=== PATIENT | male | born 2000 | race Caucasian/White ===

== ENCOUNTER 2022-10-30 09:00 | Emergency (ER) | payer BC, SELFPAY ==
--- NOTE | ~2022-10-30 | CT_ITS ---
EXAMINATION: CT brain wo con INDICATION: Transient alteration of awareness COMPARISON: None TECHNIQUE: Standard unenhanced head CT. The dose-length product (DLP) was 605.33 mGy-cm. The mA was a djusted according to patient size. Iterative reconstruction technique was employed. FINDINGS: There is no intracranial hemorrhage, acute infarction, or abnormal mass lesion. The ventric les are normal. There is no abnormal mass effect or midline shift. The gallagher-white matter differentiat ion is normal. The basal cisterns are patent. The orbits are normal. The paranasal sinuses, mastoids and calvarium are normal. IMPRESSION: 1. No acute intracranial abnormality. Reviewed, dictated and finalized at location B.
--- NOTE | ~2022-10-30 | XR_ITS ---
EXAMINATION: XR chest 1V DATE: 10/30/2022 10:25 INDICATION: Seizure TECHNIQUE: frontal view of the chest was obtained. COMPARISON: None FINDINGS: The lungs are clear with no focal airspace opacities, pulmonary edema, pleural effusion or pneumothor ax. The cardiomediastinal silhouette is normal. Partially visualized dextrocurvature centered at the proximal lumbar junction. IMPRESSION: 1. No acute cardiopulmonary disease. Reviewed, dictated and finalized at location A.
[2022-10-30 09:06] VITALS: BP 127/84; PULSE 77; RESP 18; TEMP 36.2; O2SAT 100
[2022-10-30 09:07] VITALS: BP 127/84; PULSE 108; RESP 14; O2SAT 86
[2022-10-30 09:16] VITALS: BP 114/73; PULSE 96; RESP 19
[2022-10-30 10:01] VITALS: BP 102/72; PULSE 81; RESP 19; O2SAT 100
[2022-10-30 11:11] LABS: Basophils Absolute Auto 0.1 K/mm3 (0.0-0.1); Basophils Percent Auto 0.9 % (0.2-1.2); Eosinophils Absolute Auto 0.1 K/mm3 (0-0.3); Eosinophils Percent Auto 0.9 % (0-4.4); Hematocrit 39.7 % (42.0-52.0); Hemoglobin 13.1 g/dL (14.0-18.0); Immature Granulocyte Absolute 0.02 K/mm3 (0.00-0.031); Immature Granulocyte Percent A 0.3 % (0-0.5); Lymphocytes Absolute Auto 0.89 K/mm3 (0.9-3.2); Lymphocytes Percent Auto 12.1 % (18.3-44.2); Mean Corpuscular Hemoglobin 29.2 pg (26-34); Mean Corpuscular Volume 88.6 fl (80-100); Mean Platelet Volume 8.7 fl (7.4-10.4); Monocytes Absolute Auto 0.7 K/mm3 (0.1-0.6); Monocytes Percent Auto 9.2 % (2.6-8.5); Neutrophils Absolute Auto 5.6 K/mm3 (1.3-6.7); Neutrophils Percent Auto 76.6 % (45.5-73.1); Platelet Count Result 298 k/mm3 (150-375); Red Blood Count 4.48 M/mm3 (4.6-6.20); Red Cell Distribution Width 12.3 % (11.5-14.5); White Blood Count 7.4 K/mm3 (4.5-10.0)
[2022-10-30 11:29] LABS: Ethanol < 10 mg/dL (<10)
[2022-10-30 11:30] LABS: Alanine Aminotransferase 16 U/L (6-50); Albumin Level 4.4 g/dL (3.5-5.1); Alkaline Phosphatase 58 U/L (38-126); Anion Gap 3 mmol/L (8-16); Aspartate Amino Transferase 30 U/L (17-59); Bilirubin,Total 0.3 mg/dL (0.2-1.3); Blood Urea Nitrogen 16 mg/dL (9-20); Calcium 9.3 mg/dL (8.4-10.2); Carbon Dioxide 34 mmol/L (22-30); Chloride 101 mmol/L (98-107); Estimated Glomerular Filt Rate > 60; Glucose 95 mg/dL (65-110); Potassium 4.3 mmol/L (3.4-5.0); Sodium 138 mmol/L (137-145)
[2022-10-30 12:07] LABS: Appearance Urine Clear (Clear); Bilirubin Urine Negative (Negative); Blood Urine Negative (Negative); Color Urine Yellow (Yellow); Glucose Urine UA Negative (Negative); Ketones Urine Negative (Negative); Leukocyte Esterase Ur Negative LEU/UL (Negative); Nitrate Urine Negative (Negative); Protein Urine Negative (Negative); Specific Grav Ur 1.014 (1.001-1.035); Urobilinogen Urine 0.2 mg/dL (<2.0)
[2022-10-30 12:09] LABS: Add Urine Microscopic? NO
[2022-10-30 12:23] LABS: Amphetamine Screen Urine Negative (Negative); Barbiturate Screen Urine Negative (Negative); Benzodiazepines Screen Urine Negative (Negative); Cannabinoid Screen Urine Positive (Negative); Cocaine Screen Urine Negative (Negative); Methadone Screen Urine Negative (Negative); Opiate Screen Urine Negative (Negative); Phencyclidine Screen Urine Negative (Negative)
--- NOTE | 2022-10-30 13:14 | ED.SEIZURE ---
HPI - Seizure General Chief Complaint: Seizure Stated Complaint: seizure Time Seen by Provider: 10/30/22 09:09 History of Present Illness HPI Narrative: Patient is a 22-year-old male who presents ER with a seizure. Apparently patient was at school today and suffered a grand mal seizure in front of caretakers. Mother was called and patient was brought here. Patient has no history of seizure disorder. 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 Patient is nonverbal and all history is obtained from mother. Patient apparently had loss of urine during the episode. Patient does not have a neurologist. Related Data Allergies Allergy/AdvReac Type Severity Reaction Status Date / Time No Known Allergies Allergy Verified 10/30/22 09:14 Review of Systems Review of Systems: ROS unobtainable: Yes unobtainable due to medical condition PMFSH Past Medical History Medical History (Updated 10/30/22 @ 19:50 by Gurmeet Morales MD) Septo-optic dysplasia Surgical History Surgical History (Updated 10/30/22 @ 19:50 by Gurmeet Morales MD) No history of previous surgery Exam Narrative: GENERAL: Well-appearing, well-nourished, and in no acute distress. HEAD: Normocephalic, atraumatic. ENT: Mucous membranes moist. CHEST: Clear to auscultation. No respiratory distress. HEART: Regular rate and rhythm. Normal peripheral pulses. ABDOMEN: Soft, nontender, nondistended. EXTREMITIES: Normal range of motion. No edema. SKIN: Warm, dry, no rash. Bite rashid right arm that mother reports is due to patient's frequent biting. NEURO: Alert and oriented x3. PSYCH: Normal mood and affect. Course Course Emergency Course: Patient resting comfortably. Mother informed of results. Discussed case with Dr. Geller who recommends patient be started on Keppra 500 mg twice a day. Seizure precautions given including return for breakthrough seizure. Mother verbalized understanding. Patient's mother is unsure how cannabinoids have gotten in the patient's urinalysis. She does not give him CBD or THC products. She does smoke marijuana herself but does not believe that she could have exposed her son. Vital Signs Vital signs: Vital Signs Temperature 97.2 F L 10/30/22 09:06 Pulse Rate 77 10/30/22 09:06 Respiratory Rate 18 10/30/22 09:06 Blood Pressure 127/84 10/30/22 09:06 Pulse Oximetry 100 10/30/22 09:06 Oxygen Delivery Room Air 10/30/22 09:06 Temperature 97.2 F L 10/30/22 09:06 Pulse Rate 60 10/30/22 15:02 Respiratory Rate 18 10/30/22 15:02 Blood Pressure 117/65 10/30/22 15:02 Pulse Oximetry 100 10/30/22 10:01 Oxygen Delivery Room Air 10/30/22 09:06 MDM - Seizure Lab Data 10/30/22 11:02 10/30/22 11:02 Labs: Lab Results 10/30/22 10/30/22 10/30/22 Range/Units 11:02 11:02 11:02 WBC 7.4 (4.5-10.0) K/mm3 RBC 4.48 L (4.6-6.20) M/mm3 Hgb 13.1 L (14.0-18.0) g/dL Hct 39.7 L (42.0-52.0) % MCV 88.6 (80-100) fl MCH 29.2 (26-34) pg MCHC 33.0 (32-36) g/dl RDW 12.3 (11.5-14.5) % Plt Count 298 (150-375) k/mm3 MPV 8.7 (7.4-10.4) fl Immature Gran % (Auto) 0.3 (0-0.5) % Neut % (Auto) 76.6 H (45.5-73.1) % Lymph % (Auto) 12.1 L (18.3-44.2) % [place] % (Auto) 9.2 H (2.6-8.5) % Eos % (Auto) 0.9 (0-4.4) % Baso % (Auto) 0.9 (0.2-1.2) % Lymph # (Auto) 0.89 L (0.9-3.2) K/mm3 [place] # (Auto) 0.7 H (0.1-0.6) K/mm3 Eos # (Auto) 0.1 (0-0.3) K/mm3 Baso # (Auto) 0.1 (0.0-0.1) K/mm3 Abs Immat Gran (auto) 0.02 (0.00-0.031) K/mm3 Absolute Neuts (auto) 5.6 (1.3-6.7) K/mm3 Absolute Nucleated RBC 0.0 (0.0-0.012) K/mm3 Nucleated RBC % 0.0 (0.0-0.2) % Sodium 138 (137-145) mmol/L Potassium 4.3 (3.4-5.0) mmol/L Chloride 101 (98-107) mmol/L Carbon Dioxide 34 H (22-30)
[2022-10-30] MEDS: levETIRAcetam 1000MG/NACL100ML 1,000 MG/100 ML BAG 400 MG IVPB (14:01)
[2022-10-30 15:02] VITALS: BP 117/65; PULSE 60; RESP 18
--- NOTE | 2022-11-17 13:50 | PC.NURSE ---
Late entry note: Keppra IV medication stopped at 1420 on 10/30/22 by another RN.
== END 2022-10-30 15:03 | disposition home or self-care (01) ==
PROVIDERS: Emergency Provider Emergency Medicine; PCP Nurse Practitioner Family
DX: R56.9 Unspecified convulsions (principal); Q04.4 Septo-optic dysplasia of brain
CPT/HCPCS: 36415; 70450; 71045; 80053; 80307; 81003; 85025; 96365; 99284; J1953

== ENCOUNTER 2025-04-24 16:13 | Emergency (ER) | payer OTHER, SELFPAY ==
--- OUTSIDE RECORDS SUMMARY | 2025-04-24 16:16 | XMS_ITS | Encounter Summary ---
Author Organization [facility] Address 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
--- OUTSIDE RECORDS SUMMARY | 2025-04-24 16:16 | XMS_ITS | Encounter Summary ---
Author Organization [facility] Address [address] [place] [address] Care Team Providers Care Senior Mobile Application Developer Name Role Phone Luisa Quan MD Primary Care Provider Unavailable Encounter Details Date Type Department Care Team (Late st Contact Info) Description 08/11/2004 Outpatient Historical [facility] [place] [address] 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
--- OUTSIDE RECORDS SUMMARY | 2025-04-24 16:16 | XMS_ITS | Encounter Summary ---
Author Organization [facility] Address 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 Gender Identity Not on file Sexual Orientation Not on file documented as of this encounter Plan of Treatment Not on file documented as of this encounter Procedures Procedure Name Priority Date/Time Associated Diagnosis Comments SOMATOMEDIN C Routine 11/15/2004 4:10 PM CDT TSH Routine 11/15/2004 4:10 PM CDT T4 FREE Routine 11/15/2004 4:10 PM CDT CORTISOL LEVEL Routine 11/15/2004 4:10 PM CDT COMPREHENSIVE METABOLIC PANEL Routine 11/15/2004 4:10 PM CDT documented in this encounter Results * SOMATOMEDIN C (11/15/2004 4:10 PM CDT) SOMATOMEDIN C 33 17 - 248 ng/mL INTERFACE SYSTEM Comment: Lab test performed by: [facility] [address] [place], [place] [id number] YUAN DELGADO M.D., PHD. 11/15/2004 4:10 PM CDT us Constant Voulgaropoulos CHEMISTRY ORDERABLES Fin al Result Performing Organization Address City/[facility] Co de Phone Number INTERFACE SYSTEM Refer to clinic/hospital department * CORTISOL LEVEL (11/15/2004 4:10 PM CDT) CORTISOL LEVEL 17.2 ug/dL INTER FACE SYSTEM Comment: Cortisol Reference Range: 7 - 10 AM: 6.2 - 19.4 ug/dL 4 - 8 PM: 2.3 - 12.3 ug/dL 11/15/2004 4:10 PM CDT us Constant Voulgaropoulos CHEMISTRY ORDERABLES Fin al Result Performing Organization Address City/[facility] Phone Number INTERFACE SYSTEM Refer to clinic/hospital department * TSH (11/15/2004 4:10 PM CDT) TSH 2.05 0.27 - 4.20 uU/mL INTERFACE SYSTEM 11/15/2004 4:10 PM CDT us Constant Voulgaropoulos CHEMISTRY ORDERABLES Fin al Result Performing Organization Address City/[facility] Phone Number INTERFACE SYSTEM Refer to clinic/hospital department * T4 FREE (11/15/2004 4:10 PM CDT) T4 FREE 1.4 0.9 - 1.7 ng/dL INTERFACE SYSTEM 11/15/2004 4:10 PM CDT us Constant Voulgaropoulos CHEMISTRY ORDERABLES Fin al Result Performing Organization Address City/[facility] Co de Phone Number INTERFACE SYSTEM Refer to clinic/hospital department * (ABNORMAL) COMPREHENSIVE METABOLIC PANEL (11/15/2004 4:10 PM CDT) GLUCOSE 91 60 - 110 mg/dL INTERFACE SYSTEM CREATININE 0.4 0.2 - 0.7 mg/dL INTERFACE SYSTEM CALCIUM 9.3 8.8 - 10.8 mg/dL INTERFACE SYSTEM AST 41(H) 12 - 38 U/L INTERFACE SYSTEM ALKALINE PHOSPHATASE 162 40 - 390 U/L INTERFACE SYSTEM BUN 14 6 - 20 mg/dL INTERFACE SYSTEM BILIRUBIN TOTAL 0.1(L) 0.2 - 1.0 mg/dL INTERFACE SYSTEM ALBUMIN 4.1 3.8 - 5.4 g/dL INTERFACE SYSTEM TOTAL PROTEIN 7.4 6.3 - 8.6 g/dL INTERFACE SYSTEM ALT 13 0 - 41 U/L INTERFACE SYSTEM SODIUM 138 135 - 145 mmol/L INTERFACE SYSTEM POTASSIUM 4.6 3.3 - 4.6 mmol/L INTERFACE SYSTEM CHLORIDE 101 96 - 108 mmol/L INTERFACE SYSTEM CO2 26 22 - 30 mmol/L INTERFACE SYSTEM 11/15/2004 4:10 PM CDT Brenton Green CHEMISTRY ORDERABLES Fin al Result INTERFACE SYSTEM Refer to clinic/hospital department documented in this encounter Visit Diagnoses Diagnosis Congenital reduction deformities of brain- Primary documented in this encounter Care Teams First Assistant Relationship Specialty Start Date End Date Luisa Quan MD PCP - General Family Practice 02/22/15 documented as of this encounter
--- OUTSIDE RECORDS SUMMARY | 2025-04-24 16:16 | XMS_ITS | Encounter Summary ---
Author Organization [facility] Address [address] [place] [address] Care Team Providers Care Nursing Technician Name Role Phone Luisa Quan MD Primary Care Provider Unavailable Encounter Details Date Type Department Care Team (Late st Contact Info) Description 09/12/2004 Outpatient Historical [facility] [place] [address] [facility] [place] [address] Aruna Mcmanus MD [address] [place] [phone] Social History Tobacco Use Types Packs/Day Years Used Date Smoking Tobacco: Never Assessed Sex and Gender Information Value Date Recorded Sex Assigned at Not on file 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
--- OUTSIDE RECORDS SUMMARY | 2025-04-24 16:16 | XMS_ITS | Encounter Summary ---
Author Organization [facility] Address [address] [place] [address] Care Team Providers Care Health Claims Examiner Name Role Phone Luisa Quan MD Primary Care Provider Unavailable Encounter Details Date Type Department Care Team (Late st Contact Info) Description 01/16/2007 Outpatient Historical [facility] [place] [address] [facility] [place] [address] Aruna Mcmanus MD [address] [phone] Social History Tobacco Use Types Packs/Day Years Used Date Smoking Tobacco: Never Assessed Sex and Gender Information Value Date Recorded Sex Assigned at Not on file 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
--- OUTSIDE RECORDS SUMMARY | 2025-04-24 16:16 | XMS_ITS | Encounter Summary ---
Author Organization [facility] Address [address] [place] [address] Care Team Providers Care Marbleizing Machine Tender Name Role Phone Luisa Quan MD Primary Care Provider Unavailable Encounter Details Date Type Department Care Team (Late st Contact Info) Description 04/06/2005 Outpatient Historical [facility] Pediatric[facility] [place] [address] [facility] [place] [address] Aruna Mcmanus MD [address] [place] [phone] Social History Tobacco Use Types Packs/Day Years Used Date Smoking Tobacco: Never Assessed Sex and Gender Information Value Date Recorded Sex Assigned at Not on file 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
--- OUTSIDE RECORDS SUMMARY | 2025-04-24 16:16 | XMS_ITS | Clinical Summary ---
Author Organization [facility] Address [address] [place] [address] Care Team Providers Care Insurance Solicitor Name Role Phone Lord Dc MD, Al Gonzalez Primary Care Provider [phone] Source Comments [facility],non-owned Affiliates and Associated Physician Practices is amultiple site organization consisting of ambulatory clinics and hospital sitesin [place] and [place]. This disclosure is being madepursuant to the Care Everywhere program and may not contain all information available regarding this patient. Last updated 18.[facility] Social History Tobacco Use Types Packs/Day Years Used Date Smoking Tobacco: Never Assessed Sex and Gender Information Value Date Recorded Sex Assigned at Not on file Legal Sex Male 5:44 AM CASING GRADER Gender Identity Not on file Sexual Orientation Not on file Plan of Treatment Health Maintenance Due Date Last Done Comments HIV SCREENING 2016 HPV VACCINE (1 - Male 3-dose series) 2016 HEPATITIS C SCREENING 03/23/2019 DTAP/TDAP/TD VACCINES (1 - Tdap) 2020 HEPATITIS B VACCINE (1 of 3 - 19+ 3-dose series) 2020 DEPRESSION SCREENING 07/09/2024 COVID-19 VACCINE ( - 2023-2 5 season) 2025 INFLUENZA VACCINE (#1) 2025 ZOSTER VACCINE (1 of 2) 2051 HIB VACCINE Aged Out No longer eligi ble based on patient's age to complete this topic MENINGOCOCCAL (Group B) VACC INE SHARED DECISION-MAKING Aged Out No longer eligibl e based on patient's age to complete this topic MENINGOCOCCAL GROUPS A/C/Y/W VACCINE Aged Out No longer eligible b ased on patient's age to complete this topic PNEUMOCOCCAL VACCINE Aged Out No long er eligible based on patient's age to complete this topic Care Teams Insurance Solicitor Relationship Specialty Start Date End Date Al Vazquez Jr., MD PCP - General Family Medicine 06/25/13
--- OUTSIDE RECORDS SUMMARY | 2025-04-24 16:16 | XMS_ITS | Encounter Summary ---
Author Organization [facility] Address [address] [place] [address] Care Team Providers Care Hat Forming Machine Feeder Name Role Phone Luisa Quan MD Primary Care Provider Unavailable Encounter Details Date Type Department Care Team (Late st Contact Info) Description 01/16/2007 Outpatient Historical [facility] Pediatric[facility] [place] [address] [facility] [place] [address] Aruna Mcmanus MD [address] [phone] Social History Tobacco Use Types Packs/Day Years Used Date Smoking Tobacco: Never Assessed Sex and Gender Information Value Date Recorded Sex Assigned at Not on file 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 Gender Identity Not on file Sexual Orientation Not on file documented as of this encounter Plan of Treatment Not on file documented as of this encounter Procedures Procedure Name Priority Date/Time Associated Diagnosis Comments CHG POLIOVIRUS IPV VFC 7 12:00 AM CDT CHG DTAP VACCINE <7 YO IM VFC 01/16/2007 12:00 AM CDT CHG HEPATITIS A VACCINE PED ADOL IM 2 DOSE VFC 01/16/2007 12:00 AM CDT documented in this encounter Visit Diagnoses Not on filedocumented in this encounter Care Teams Hat Forming Machine Feeder Relationship Specialty Start Date End Date Luisa Quan MD PCP - General Family Practice 02/22/15 documented as of this encounter
--- OUTSIDE RECORDS SUMMARY | 2025-04-24 16:16 | XMS_ITS | Clinical Summary ---
Author Organization [facility] [address] [place] Address [address] [facility] [place] [address] Care Team Providers Care Blueprint Processor Name Role Phone Luisa Quan MD Primary Care Provider Unavailable Allergies Active Allergy Reactions Criticality Noted Date Comments No Known Allergies 2005 Medications LORazepam (ATIVAN) 0.5 mg tabletIndication s:Autism spectrum disorder,Dental caries Take one tab by mouth 30 mins prior to dental appointment .. 1 Tablet 2 02/08/2018 Active Active Problems Problem Noted Date Diagnosed Date Septo-optic dysplasia of brain 10/17/2016 Autism spectrum disorder 03/08/2012 Blindness 03/05/2008 Developmental delay 03/05/2008 Short stature for age 0803/05/2008 Well child check 03/04/2008 Resolved Problems Problem Noted Date Diagnosed Date Resolved Date Hearing loss 06/10/2008 07/13/2010 Immunizations Immunization Administration Dates Next Due (ACTHIB/HIBERIX)(2 MOS-5 YRS /6 WKS-4 YRS) HAEMOPHILUS INFLUENZAE TYPE B VACCINE (HIB), PRP-T CONJUGATE, 4 DOSE, 0.5 ML IM 05/02/2002,2001,2001,07/26 (HAVRIX/VAQTA)(12 MO-18 YRS) HEPATITIS A VACCINE 0.5 ML PED/ADOL 2 DOSE, IM 01/16/2007 (INFANRIX)(6 WKS-6 YRS) DIPT HERIA, TETANUS TOXOIDS, AND ACCELLULAR PERTUSSIS VACCINE (DTAP), 0.5 ML IM 01/16/2007,01/19/2003,2001,09/24,2001 (IPOL)(6 WKS AND UP) POLIOVI CHITO VACCINE, INACTIVATED (IPV), 3 DOSE, SUBCUT OR IM 01/16/2007,01/19/2003,2001,09/24,2001 (M-M-R II/PRIORIX)(12 MO UP) MEASLES, MUMPS AND RUBELLA VIRUS VACCINE, 0.5 ML IM/SUBCUT 01/16/2007,05/02/2002 (RECOMBIVAX HB/ENGERIX-B)(0- 19 YRS) HEPATITIS B VACCINE 5 MCG/0.5 ML OR 10 MCG/0.5 ML PED OR ADOL 3 DOSE (PF), IM 01/19/2003,2001,2001 (VARIVAX)(12 MOS UP)VARICELL A VIRUS VACCINE (PF) 0.5 ML, SUB CUT 05/02/2002 Hepatitis A Vaccine Ped Adol IM 2 Dose VFC 03/04/2008 Meningococcal A Conjugate Va ccine IM VFC 02/22/2015 Meningococcal A Conjugate Vaccine IM 02/08/2018 Pneumococcal 7-valent conjug ate vaccine IM 05/02/2002 Tdap Vaccine > 7 Yo IM VFC 02/22/2015 Family History Medical History Relation Name Comments Healthy Brother Healthy Father Hypertension Maternal Grandfather Cancer Maternal Grandmother Healthy Maternal Grandmother Healthy Mother Liver Cancer Other 1 matgrtgma not Etho relate d Breast Cancer Other 2 matgrtgma Breast Cancer Other 3 matgrtaunt Relation Name Status Comments Brother Alive Father Alive Maternal Grandfather Alive Maternal Grandmother Alive Mother Alive Other 1 matgrtgma Other 2 matgrtgma Alive Other 3 matgrtaunt Alive Paternal Grandfather Alive Paternal Grandmother Alive Social History Tobacco Use Types Packs/Day Years Used Date Smoking Tobacco: Never Smokeless Tobacco: Never Alcohol Use Standard Drinks/Week Comments Not Asked 0 (1 standard drink = 0.6 oz pur e alcohol) Sex and Gender Information Value Date Recorded Sex Assigned at Not on file 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 Gender Identity Not on file Sexual Orientation Not on file Occupation Industry Job Start Date Job End Date Not on file Not on file Not on file Not on file Last Filed Vital Signs Vital Sign Reading Time Taken Comments Blood Pressure 112/54 10/17/2016 9:45 AM CDT Pulse 87 02/08/2018 2:53 PM CDT Temperature 37.2 C (98.9 F) 02/08/2018 2:53 PM CDT Respiratory Rate - - Oxygen Saturation 79% 02/08/2018 2:53 PM CDT cold hands Inhaled Oxygen Concentration - - Weight 33.6 kg (74 lb) 02/08/2018 2:53 PM CDT Height 145.4 cm (4' 9.25) 02/08/2018 2:53 PM CD T Body Mass Index 15.87 02/08/2018 2:53 PM CDT Plan of Treatment Health Maintenance Due Date Last Done Comments HPV VACCINES (1 - Male 3-dos e series) 2016 INFLUENZA VACCINE (#1) 2025 DTAP/TDAP/TD VACCINES (7 - T d or Tdap) 02/22/2025 02/22/2015, 01/16/2007, 01/19/2003, Additional history exists HEPATITIS B VACCINES Completed 01/19/2003, 2001, 2001 Insurance MEDICAID [facility] MEDICAID Care Teams Blueprint Processor Relationship Specialty Start Date End Date Luisa Quan MD PCP - General Family Practice 02/22/15
--- OUTSIDE RECORDS SUMMARY | 2025-04-24 16:16 | XMS_ITS | Encounter Summary ---
Author Organization [facility] Address [address] [place] [address] Care Team Providers Care Snuff Drier Name Role Phone Luisa Quan MD Primary Care Provider Unavailable Encounter Details Date Type Department Care Team (Late st Contact Info) Description 08/18/2004 Outpatient Historical [facility] Pediatric[facility] [place] [address] [facility] [place] [address] Aruna Mcmanus MD [address] [place] [phone] Social History Tobacco Use Types Packs/Day [...] on filedocumented in this encounter Care Teams Snuff Drier Relationship Specialty Start Date End Date Luisa Quan MD PCP - General Family Practice 02/22/15 documented as of this encounter
--- OUTSIDE RECORDS SUMMARY | 2025-04-24 16:16 | XMS_ITS | Encounter Summary ---
Author Organization [employer] Address [address] [place] [address] Care Team Providers Care Architect Name Role Phone Luisa Quan MD Primary Care Provider Unavailable Encounter Details Date Type Department Care Team (Latest Contact Info) Description 07/03/2005 Outpatient Historical [facility] [place] [address] PRECIOUS [address] [place] [id number] ACUTE SUPP OTITIS MEDIA NOS (Primary Dx) Social History Tobacco Use Types Packs/Day Years Used Date Smoking Tobacco: Never Assessed Sex and Gender Information Value Date Recorded Sex Assigned at Not on file Legal Sex Male 4:33 AM [employer] Gender Identity Not on file Sexual Orientation Not on file documented as of this encounter Plan of Treatment Not on file documented as of this encounter Visit Diagnoses Diagnosis Acute suppurative otitis media without spontaneous rupture of eardrum- Primary documented in this encounter Care Teams Architect Relationship Specialty Start Date End Date Luisa Quan MD PCP - General Family Practice 02/22/15 documented as of this encounter
[2025-04-24 16:26] VITALS: BP 125/79; PULSE 94; RESP 18; TEMP 36.3; O2SAT 97
--- NOTE | 2025-04-24 16:50 | ED_ITS ---
HPI - Skin/Abscess/Foreign Bdy General Chief complaint: Skin/Abscess/Foreign Body Stated complaint: Rash Time Seen by Provider: 04/24/25 16:30 Source: patient and RN notes reviewed Mode of arrival: ambulatory Limitations: no limitations History of Present Illness HPI narrative: 25-year-old male patient presents Express Care with mother complaining of room to she right great toe. Mother says the patient has a history of autism, nonverbal and blind. Mother says he has a problem with picking and scratching at it is skin. He has a wound to his right great toe from scratching. Mother has been applying mupirocin ointment to it to help prevent infection. She keeps head covered during the day however at night he refuses to let upon anything over it and he will scratch at night. Mother denies any fevers, nausea, vomiting, redness, swelling, abnormal drainage, or any other symptoms. Related Data Allergies Allergy/AdvReac Type Severity Reaction Status Date / Time No Known Allergies Allergy Verified 10/30/22 09:14 Review of Systems Review of Systems: CONSTITUTIONAL: Denies fever, chills, or sweats. EYES: Denies visual changes, redness, or discharge. ENT: Denies rhinorrhea, congestion, sore throat, or otalgia. CARDIOVASCULAR: Denies chest pain, palpitations, or edema. RESPIRATORY: Denies cough or dyspnea. GASTROINTESTINAL: Denies abdominal pain, nausea, vomiting, or diarrhea. GENITOURINARY: Denies dysuria or hematuria. SKIN: Denies rash. Positive for wound And itching MUSCULOSKELETAL: Denies back pain, joint pain, or myalgia. NEUROLOGIC: Denies headache, numbness, or weakness. PSYCHIATRIC: Denies anxiety or depression. All other systems reviewed are negative, except as documented in HPI. PMFSH Past Medical History Medical History Septo-optic dysplasia Surgical History Surgical History No history of previous surgery Comments At the time of my signature, I reviewed and agree with the nursing past medical, surgical, social, and family history. There is no relevant family history pertinent to the patient complaint. Exam Narrative: GENERAL: This is a well-nourished, well-developed adult, in no apparent distress. They are non ill-appearing, nontoxic appearing. HEAD: normocephalic, atraumatic. EYES: Sclera clear/white. Conjunctiva normal. Patient is blind. EARS: External ears normal, Hearing grossly intact. NOSE: External nose normal THROAT: Mucous membranes moist, NECK: Neck supple, CARDIOVASCULAR: Regular rate and rhythm RESPIRATORY: Respiratory rate normal, respiratory effort nonlabored, no respiratory distress SKIN: Right great toe: Wound present near the MCP joint of the dorsal surface of the toe. No surrounding erythema or swelling. It appears excoriated with lichenification. No area of fluctuance, no induration, nontender to palpate. It is not hot to touch. Nail bed any a plate intact. NEURO: awake, alert, and oriented to person, place and time. There were no obvious focal neurologic abnormalities. EXTREMITIES: No joint tenderness, effusion, or edema noted. Course Course Emergency Course: Portions of this record may have been created with voice recognition software Level of Care: Express Care Visit Vital Signs Vital signs: Vital Signs Temperature 97.4 F L 04/24/25 16:26 Pulse Rate 94 04/24/25 16:26 Respiratory Rate 18 04/24/25 16:26 Blood Pressure 125/79 04/24/25 16:26 Pulse Oximetry 97 04/24/25 16:26 Oxygen Delivery Room Air 04/24/25 16:26 Temperature 97.4 F L 04/24/25 16:26 Pulse Rate 94 04/24/25 16:26 Respiratory Rate 18 04/24/25 16:26 Blood Pressure 125/79 04/24/25 16:26 Pulse Oximetry 97 04/24/25 16:26 Oxygen Delivery Room Air 04/24/25 16:26 Reviewed MDM - Skin/Abscess/Foreign Bdy MDM Narrative Medical decision making narrative: No evidence of infection to patient's wound on his right great toe. Appears to be healing however it appears that he is cause excoriation and [place] vacation to a due to scratching. Will refill mupirocin ointment. Discussed wound care with mother. Discussed the use of antihistamines to help with itchy anti itch creams to help prevent itching and finding a way to keep it covered at night. Discussed physical exam findings. Advised supportive measures and signs/symptoms to go to the ER. Pt is appropriate for outpt treatment and f/u. Differential Diagnosis Differential diagnosis: Likely abscess of skin or subcutaneous tissue, cellulitis, eczema and contact dermatitis Critical Care Time Critical Care Time Critical Care Time: No Discharge Plan Discharge Clinical Impression: Visit for wound check Patient Disposition: Home Condition: Stable Instructions: Antibiotic Form, Acute Wounds (DC) Additional Instructions: Wash the wound daily with mild soap and water. Keep it dry and covered. Apply mupirocin ointment as directed. After week you may switch to Vaseline. Keep it covered at night to help him from itching. He may also give him is [id number] Zyrtec or Claritin during the day for itchiness or allergy symptoms. Follow instructions the bottle. May give Benadryl at night to help with allergy symptoms, follow instructions on the bottle, Benadryl will may make him drowsy. You may also apply calamine lotion come Benadryl cream, or cam for cream as needed for itchiness symptoms. Follow instructions on the bottle. Follow-up PCP in 1 week for wound recheck. If he developed worsening redness, swelling, pain, fevers, green/yellow drainage, vomiting, or any serious concerns please go to the ER immediately. Patient Language: Surinamese Prescriptions: New mupirocin [Centany] 2 % ointment 1 applic topical BID 7 Days Qty: 22 0RF Follow-up/Referrals: Amalia Ramires APRN [Primary Care Provider, Family Practice] Time of Disposition: 16:45
== END 2025-04-24 16:48 | disposition home or self-care (01) ==
PROVIDERS: PCP Nurse Practitioner Family
DX: S91.101A Unspecified open wound of right great toe without damage to nail, initial encounter (principal); X58.XXXA Exposure to other specified factors, initial encounter; Q04.4 Septo-optic dysplasia of brain; F84.0 Autistic disorder
CPT/HCPCS: 99211; 99213; G0463